=== PATIENT | male | born 1980 | race Caucasian/White ===

== ENCOUNTER 2018-07-25 23:24 | Observation (INO) | payer OTHER ==
[~2018-07-25] VITALS: Ht 175.3 cm; Wt 99.9 kg
--- OUTSIDE RECORDS SUMMARY | 2018-07-25 23:25 | XMS REPORT | Clinical Summary ---
Author Author [facility] Organization [facility] Address Unknown Phone Unavailable Care Team Providers Care Clipper And Turner Name Role Phone Edu Arzola MD PCP Allergies No Known Allergies Medications End Date Status Medication Sig Dispensed Refills Start Date Active amphetamine-dextroampheta 0 mine XR (ADDERALL XR) 25 7 MG 24 hr capsule Active hydroCHLOROthiazide 2 (HYDRODIURIL) 25 MG 7 tablet Active anastrozole (ARIMIDEX) 1 TAKE 1 T PO D 1 mg chemo tablet 7 Active TESTOSTERONE CYPIONATE IM Inject into 0 the shoulder, thigh, or buttocks. Active Problems Problem Noted Date Hypogonadism in male 06/30/2017 Infertility counseling 06/30/2017 Encounters Care Team Description Date Type Specialty Edu Arzola MD Fertility testing (Primary Dx) 09/01/2017 Lab Lab after 07/24/2017 Family History Medical History Relation Name Comments Seizures Brother Prostate cancer Father Diabetes Mother Hyperlipidemia Mother Relation Name Status Comments Brother Father Mother Social History Date Tobacco Use Types Packs/Day Years Used Never Smoker Smokeless Tobacco: Never Used Alcohol Use Drinks/Week oz/Week Comments No Sex Assigned at Date Recorded Not on file Industry Job Start Date Occupation Not on file Not on file Not on file Travel End Travel History Travel Start No recent travel history available. Last Filed Vital Signs Not on file Plan of Treatment Health Maintenance Due Date Last Done Comments MMR VACCINES ( - 1979 Standard series) VARICELLA VACCINES (1991 2 - 2-dose adolescent series) INFLUENZA VACCINE 03/29/2018 HEPATITIS B VACCINES Aged Out No longer eligible based on patient's age to complete this topic IPV VACCINES Aged Out No longer eligible based on patient's age to complete this topic MENINGOCOCCAL VACCINE Aged Out No longer eligible based on patient's age to complete this topic Procedures Comments Procedure Name Priority Date/Time Associated Diagnosis SEMEN ANALYSIS Routine 12/14/2017 Hypogonadism in male 7:33 AM CDT SEMEN ANALYSIS Routine 09/01/2017 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 Volume, semen 2mls 2-5mL mL [facility] OF PATHOLOGY AND GENOMIC MEDICINE Color, semen Robles-White Robles-White mL [facility]MENT OF PATHOLOGY AND GENOMIC MEDICINE Appearance, semen Opaque [facility] DEPARTMENT OF PATHOLOGY AND GENOMIC MEDICINE Count, semen No sperm seen >20mil/mL mil/mL [facility] DE[facility]MENT OF PATHOLOGY AND GENOMIC MEDICINE Morphology, semen FootnoteComment: No sperm seen >50% % NRM [facility] DEPARTMENT OF PATHOLOGY AND GENOMIC MEDICINE pH, semen 8.0 7.2 - 8.0 [facility]MENT OF PATHOLOGY AND GENOMIC MEDICINE Viscosity, semen Normal [facility]MENT OF Comment: PATHOLOGY AND Normal--------Drips/pours GENOMIC MEDICINE easily Moderate------Thick, does not drop/pour easily Marked--------Unable to pipette or work with Liquefaction, semen Upon Receipt <=60 [facility] DEPARTMENT OF PATHOLOGY AND GENOMIC MEDICINE Immediate motility, semen No sperm seen >50% [facility] DEPARTMENT OF Comment: PATHOLOGY AND Decreased Motility (Less than GENOMIC MEDICINE 30%) may be due to either Non-Viable or Non-Motile Sperm Motility grading, semen FootnoteComment: No sperm seen [facility] DEPARTMENT OF yenny Silvestre . PATHOLOGY AND GENOMIC MEDICINE Motility 4 hr, semen Not Performed [facility] DEPARTMENT OF PATHOLOGY AND GENOMIC MEDICINE Motility 24 hr, semen Not Performed [facility] DEPARTMENT OF PATHOLOGY AND GENOMIC MEDICINE RBC, semen 0-2 None seen/HPF % [facility] DEPARTMENT OF PATHOLOGY AND GENOMIC MEDICINE WBC, semen 1-5 0-2/HPF % [facility] DEPARTMENT OF PATHOLOGY AND GENOMIC MEDICINE Collection method, semen Masterbation [facility] DEPARTMENT OF PATHOLOGY AND GENOMIC MEDICINE Abstinence days, semen 4 [facility] DEPARTMENT OF PATHOLOGY AND GENOMIC MEDICINE Container, semen Sterile [facility]MENT OF PATHOLOGY AND GENOMIC MEDICINE Collect problems, semen None [facility]MENT OF PATHOLOGY AND GENOMIC MEDICINE Collect time, semen 7:30 [facility]MENT OF PATHOLOGY AND GENOMIC MEDICINE Lab receipt time, semen 7:55 [facility]MENT OF PATHOLOGY AND GENOMIC MEDICINE Analysis time, semen 8:9 [facility] DEPARTMENT OF PATHOLOGY AND GENOMIC MEDICINE Specimen Fluid Performing Organization Address City/State/Zipcode Phone Number [facility] DEPARTMENT OF [address] [place] [address] PATHOLOGY AND GENOMIC MEDICINE after 07/24/2017 Insurance Payer Benefit Subscriber ID Type Phone Address Plan / Group BCBS BCBS xxxxxxxxxxxx PPO CHOICE PPO/LYNDA WALLACE PPO Advance Directives Patient has advance care planning documents on file. For more information, darshan alvarez contact: Mele Xavier [address] [place] [address]
[2018-07-25] MEDS ORDERED: ONDANSETRON HCL INJ 2 MG/ML VIAL IV STA (23:39)
[2018-07-25] MEDS ORDERED: NITROGLYCERIN 2% OINT 1 GM PKT TOP ONE (23:45)
[2018-07-25] MEDS ORDERED: ASPIRIN 81 MG CHEW TAB PO ONE (23:45)
[2018-07-26 00:04] LABS: BASOPHILS # (AUTO) 0.1 (0.0-0.1); BASOPHILS % 0.9 % (0.0-1.0); EOSINOPHILS # (AUTO) 0.3 (0.0-0.4); EOSINOPHILS % 2.8 % (0.0-6.0); HEMATOCRIT 50.4 % (38.2-49.6); HEMOGLOBIN 16.9 g/dL (14.0-18.0); LYMPHOCYTES # (AUTO) 2.2 (1.0-3.2); LYMPHOCYTES % 18.8 % (18.0-39.1); MEAN CORPUSCULAR HEMOGLOBIN 30.2 pg (28-32); MEAN CORPUSCULAR HGB CONC 33.5 g/dL (31-35); MEAN CORPUSCULAR VOLUME 90.2 fL (81-99); MONOCYTES % 8.5 % (4.4-11.3); NEUTROPHILS # (AUTO) 7.9 (2.1-6.9); NEUTROPHILS % 68.3 % (38.7-80.0); PLATELET COUNT 345 x10e3/uL (140-360); RED BLOOD COUNT 5.59 x10e6/uL (4.3-5.7); RED CELL DISTRIBUTION WIDTH 13.2 % (11.7-14.4)
[2018-07-26] MEDS ORDERED: PANTOPRAZOLE 40 MG 10ML VIAL IV STA (00:17)
[2018-07-26 00:21] LABS: ALBUMIN 3.9 g/dL (3.5-5.0); ANION GAP 15.4 mmol/L (8-16); CALCIUM 9.8 mg/dL (8.4-10.2); CREATININE, SERUM 1.51 mg/dL (0.72-1.25); POTASSIUM 3.4 mmol/L (3.5-5.1)
[2018-07-26 00:28] LABS: CREATINE KINASE MB 3.8 ng/mL (0-5.0)
--- NOTE | 2018-07-26 00:57 | Diagnostic Imaging Report ---
EXAM: CHEST SINGLE (PORTABLE), AP 1 view INDICATION: Chest pain, indigestion COMPARISON: None FINDINGS: LINES/TUBES: None LUNGS: No consolidations or edema. PLEURA: No effusions or pneumothorax. HEART AND MEDIASTINUM: Normal size and contour. BONES AND SOFT TISSUES: No acute findings. IMPRESSION: No acute thoracic abnormality. Signed by: Dr. Malou Parekh M.D. on 07/26/2018 12:53 AM
[2018-07-26] MEDS ORDERED: POTASSIUM CHLORIDE 20 MEQ TAB CR PO STA (01:27)
[2018-07-26] MEDS ORDERED: SODIUM CHLORIDE 0.9% 1000ML 1,000 ML IV ONE (01:30)
[2018-07-26] MEDS ORDERED: POTASSIUM CHLORIDE 20 MEQ TAB CR PO ONE (01:34)
[2018-07-26] MEDS ORDERED: ASPIRIN 81 MG CHEW TAB PO ONE (01:45)
[2018-07-26] MEDS ORDERED: ONDANSETRON HCL INJ 2 MG/ML VIAL IV PRN (01:45)
[2018-07-26] MEDS ORDERED: ONDANSETRON HCL INJ 2 MG/ML VIAL IV STA (01:48)
--- OUTSIDE RECORDS SUMMARY | 2018-07-26 01:58 | XMS REPORT | Clinical Summary ---
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 Volume, semen 2mls 2-5mL mL [facility]OMIC MEDICINE Color, semen Robles-White Robles-White mL [facility]OLOGY AND GENOMIC MEDICINE Appearance, semen Opaque [facility]OLOGY AND GENOMIC MEDICINE Count, semen No sperm seen >20mil/mL mil/mL [facility]OLOGY AND GENOMIC MEDICINE Morphology, semen FootnoteComment: No sperm seen >50% % NRM [facility]OLOGY AND GENOMIC MEDICINE pH, semen 8.0 7.2 - 8.0 [facility]OLOGY AND GENOMIC MEDICINE Viscosity, semen Normal [facility] Comment: PATHOLOGY AND Normal--------Drips/pours GENOMIC MEDICINE easily Moderate------Thick, does not drop/pour easily Marked--------Unable to pipette or work with Liquefaction, semen Upon Receipt <=60 [facility]OLOGY AND GENOMIC MEDICINE Immediate motility, semen No sperm seen >50% [facility] Comment: PATHOLOGY AND Decreased Motility (Less than GENOMIC MEDICINE 30%) may be due to either Non-Viable or Non-Motile Sperm Motility grading, semen FootnoteComment: No sperm seen [facility] yenny Silvestre . PATHOLOGY AND GENOMIC MEDICINE Motility 4 hr, semen Not Performed [facility]OLOGY AND GENOMIC MEDICINE Motility 24 hr, semen Not Performed [facility]OLOGY AND GENOMIC MEDICINE RBC, semen 0-2 None seen/HPF % [facility]OLOGY AND GENOMIC MEDICINE WBC, semen 1-5 0-2/HPF % [facility]OLOGY AND GENOMIC MEDICINE Collection method, semen Masterbation [facility]OLOGY AND GENOMIC MEDICINE Abstinence days, semen 4 [facility]OLOGY AND GENOMIC MEDICINE Container, semen Sterile [facility] PATHOLOGY AND GENOMIC MEDICINE Collect problems, semen None [facility]OLOGY AND GENOMIC MEDICINE Collect time, semen 7:30 [facility]OLOGY AND GENOMIC MEDICINE Lab receipt time, semen 7:55 [facility]OLOGY AND GENOMIC MEDICINE Analysis time, semen 8:9 [facility]Y AND GENOMIC MEDICINE Specimen Fluid Performing Organization Address City/State/Zipcode Phone Number [facility] [address] [place] [address] PATHOLOGY AND GENOMIC MEDICINE after 07/25/2017 Insurance Payer Benefit Subscriber ID Type Phone Address Plan / Group BCBS BCBS xxxxxxxxxxxx PPO CHOICE PPO/LYNDA WALLACE PPO Advance Directives Patient has advance care planning documents on file. For more information, darshan alvarez contact: Mele Xavier [address] [place] [address]
--- OUTSIDE RECORDS SUMMARY | 2018-07-26 01:58 | XMS REPORT ---
Author [facility] Address Unknown Phone Unavailable Care Team Providers Care Chaser Apprentice Name Role Phone Mayte RIZZO Unavailable Unavailable Problems This patient has no known problems. Allergies, Adverse Reactions, Alerts This patient has no known allergies or adverse reactions. Medications This patient has no known medications. Results Test Description Test Time Test Comments Text Results Atomic Results Result Comments CHEST SINGLE (PORTABLE) 2018-07-26 00:53:00 [place] [address] Patient Name: LAZARA GEORGE MR #: [id number] : 1980 Age/Sex: 37/M Req #: [id number] Adm Physician: Ordered by: FELICIANO RIZZO MD Report #: [id number] Location: ER Room/Bed: Procedure: [id number] DX/CHEST SINGLE (PORTABLE) Exam Date: 07/25/18 Exam Time: 2359 REPORT STATUS: Signed EXAM: CHEST SINGLE (PORTABLE), AP 1 view INDICATION: Chest pain, indigestion COMPARISON: None FINDINGS: LINES/TUBES: None LUNGS: No consolidations or edema. PLEURA: No effusions or pneumothorax. HEART AND MEDIASTINUM: Normal size and contour. BONES AND SOFT TISSUES: No acute findings. IMPRESSION: No acute thoracic abnormality. Signed by: Dr. Curtis Riggins M.D. on 07/26/2018 12:53 AM D ictated By: CURTIS RIGGINS MD Transcribed By: MIRA on 07/26/1852 COPY TO: FELICIANO RIZZO MD
[2018-07-26] MEDS: SODIUM CHLORIDE 0.9% 1000ML 1,000 ML IV SCH ×2 (02:23→08:50)
[2018-07-26] MEDS ORDERED: ANASTROZOLE1 MG PO (02:42)
[2018-07-26] MEDS ORDERED: PROPRANOLOL HCL40 MG PO (02:42)
[2018-07-26] MEDS ORDERED: ADDERALL 20 MG20 MG PO (02:42)
[2018-07-26] MEDS ORDERED: ESIDRIX25 MG PO (02:42)
[2018-07-26] MEDS ORDERED: TESTOSTERO200 MG/1 M IM (02:42)
[2018-07-26] MEDS ORDERED: ACETAMINOPHEN 325 MG TAB PO PRN (02:45)
[2018-07-26 03:09] VITALS: BP 113/70
[2018-07-26 03:27] VITALS: BP 113/70
[2018-07-26] MEDS ORDERED: NITROGLYCERIN 2% OINT 1 GM PKT TOP SCH (06:00)
[2018-07-26 06:08] LABS: CREATINE KINASE MB 2.7 ng/mL (0-5.0)
--- NOTE | 2018-07-26 07:37 | History and Physical ---
REASON FOR ADMISSION: This 37-year-old male comes in with chest pain. HISTORY OF PRESENT ILLNESS: Mr. Dorado, with a history of continuous reflux esophagitis, was in his usual state of health until yesterday. The patient played some softball and went to the gym yesterday and started to have some intermittent chest pain, more epigastric in nature and radiating to the back, associated with nausea. The pain continued. The patient said it was severe, and the pain was about 7/10 to 8/10. With the ongoing chest pain and relentless pain, the patient came to the emergency room and was admitted for chest pain with abnormal EKG and also symptoms of gastritis. PAST MEDICAL HISTORY: Hypertension, history of low testosterone, history of ADHD. MEDICATIONS 1. Adderall 20 mg daily. 2. Testosterone cypionate 1 mg twice a week. 3. Propranolol 40 mg twice a day. 4. Hydrochlorothiazide 25 mg. 5. Anastrozole 1 mg for estrogen ramona. SURGICAL HISTORY: Noncontributory. ALLERGIES: NO KNOWN ALLERGIES. SOCIAL HISTORY: No EtOH. No IV drug use. Positive for dipping, but the patient apparently did stop dipping about 2 days ago because of the severe esophagitis. REVIEW OF SYSTEMS: Positive for chest pain. No shortness of breath. No nausea, vomiting, diarrhea. No constipation. No rectal bleeding. No hematochezia. No hematemesis. PHYSICAL EXAMINATION GENERAL: Alert and oriented times 3. VITAL SIGNS: Temperature 98.4, respirations 21, blood pressure 133/70, pulse ox 95% on room air. The blood pressure right now is 113/70. CV: S1 and S2 normal, regular rate and rhythm. ABDOMEN: Tender in the epigastrium. EXTREMITIES: No clubbing. No cyanosis. No edema. LABS: The patient's initial laboratory values: Sodium 136, potassium 3.4, creatinine 1.51, EGFR 52, creatine kinase 1133. Hematology: White count 11.53, hemoglobin 16.9, hematocrit 40.4, neutrophils 7.9. IMAGING STUDIES: Chest x-ray was essentially no acute thoracic abnormality. ASSESSMENT 1. Chest pain. 2. Electrocardiogram changes with T-wave inversions in II, III and aVF. 3. Epigastric pain, possibly gastritis in nature. 4. Elevated creatine kinase secondary to probably dehydration and also overuse. Will continue monitoring. It has been trending down. 5. Acute kidney injury. Continue with fluids. PLAN 1. Consult cardiology, Dr. Sharma, because of family history and also T-wave inversions. 2. Will consult Dr. Myke Jordan secondary to gastritis. He will need an EGD as an outpatient or in here. 3. Further recommendations depending on clinical course. Will continue to monitor the patient. Also, we will repeat his CK and also his creatinine function tomorrow. Job#: [id number]
[2018-07-26 07:52] VITALS: BP 122/64
[2018-07-26] MEDS: PANTOPRAZOLE SOD 40 MG TABEC PO SCH (08:50)
[2018-07-26] MEDS: FAMOTIDINE 20 MG/2 ML VIAL IV SCH ×2 (08:50→22:40)
[2018-07-26] MEDS ORDERED: PROPRANOLOL HCL 40 MG TAB PO SCH (09:00)
[2018-07-26 11:34] VITALS: BP 116/62
--- NOTE | 2018-07-26 12:34 | Cardiology Report ---
DATE OF STUDY: July 26, 2018 EXERCISE TREADMILL STRESS TEST INDICATION FOR STUDY: Chest pain. TECHNICAL DETAILS: After risks, benefits, pros and cons of today's exercise treadmill stress test were explained to the patient, the patient agreed to proceed. Patient was brought to the stress lab were 12-lead EKG monitoring and blood pressure monitoring were obtained. The patient exercised on a Reji protocol for a total duration of 7:00 minutes, going from a resting heart rate of 81 beats per minute to a maximum of 160 beats per minute above his target heart rate of 154 beats per minute. Blood pressure increased from a baseline of 103/66 to 159/66, which is an appropriate blood pressure response. Protocol was terminated due to achievement of target heart rate. At peak exercise, there were no ischemic EKG changes and the patient denied any chest pain or shortness of breath. Protocol was terminated into 1 minute of stage 3 of the Reji protocol. CONCLUSIONS 1. Negative exercise treadmill stress test. 2. Underlying EKG reveals sinus rhythm with nonspecific T-wave inversions in the lateral precordial leads. At peak exercise, there were no ST-segment changes, and there were no subjective ischemic symptoms. 3. Overall stress test represents a low-risk stress test. Job#: [id number] PAUL
[2018-07-26 14:11] LABS: CREATINE KINASE MB 2.1 ng/mL (0-5.0)
--- NOTE | 2018-07-26 14:56 | Consultation ---
DATE OF CONSULTATION: July 26, 2018 CARDIOLOGY CONSULTATION REASON FOR CONSULTATION: Chest pain. HISTORY OF PRESENT ILLNESS: Mr. Dorado is a 37-year-old gentleman with past medical history of GERD and hypertension as well as chronic steroid use with testosterone. The patient at baseline is very active. He works as a marketing professional for a company. For the past 5 years, he has been pretty tenriism in terms of having a good exercise structured program including free weights, cardio, etc. He has been experiencing a 1-month history of progressively worsening GERD-type sensation where he has epigastric burning radiating up his chest wall, lasting 15 to 20 minutes at a time, exacerbated by certain meals. The symptoms progressively worsened over the course of this 1 month, and now he is having almost daily episodes. The patient yesterday worked out in his gym and had no limitations. However, he did have some chest discomfort. He went home. Around 10 p.m., he had a severe episode of this GERD-like sensation with pain radiating up his chest wall region associated with shortness of breath and then pressure-like sensation. It lasted 4 hours. He ended up coming into the emergency room where he was admitted for this chest pain episode. His cardiac biomarkers thus far times 2 appear to be negative. His EKG revealed nonspecific T-wave inversions in the lateral precordial leads. In the emergency room, he had an episode of vomiting, which was reported to be blood-tinged, which is new for him. His reports that his ability to eat has changed over the span of the last month and is concerned about his overall state of health. We had a long discussion with the patient in terms of alternative diagnoses and differential diagnosis, and the patient wanted just conservative management with noninvasive evaluation with a treadmill stress test. He is for a treadmill stress test this a.m. GI has also been consulted, and he will likely undergo further evaluation with them. PAST MEDICAL HISTORY 1. Hypertension, essential. 2. Low testosterone. 3. History of ADHD. PAST SURGICAL HISTORY: Denies. FAMILY HISTORY: Mother and father are both alive and well. There is no family history of coronary disease with them. SOCIAL HISTORY: He is a lifelong nonsmoker. Denies any alcohol or illicit drug use. He does dip tobacco at times, but he stopped dipping in recent history. ALLERGIES: NO KNOWN DRUG ALLERGIES. HOME MEDICATIONS: Include: 1. Adderall 20 mg daily. 2. Testosterone 1 mg twice a week. 3. Propranolol 40 mg b.i.d. 4. Hydrochlorothiazide 25 mg daily. 5. Anastrozole 1 mg daily. REVIEW OF SYSTEMS GENERAL: Denies any fever, chills or any weight changes. HEENT: No headache, visual complaints, sore throat, stuffy nose. RESPIRATORY: Denies any pleuritic chest pain. Had shortness of breath with the last chest pain episode. CARDIOVASCULAR: Chest pain as per HPI. Denies any orthopnea, PND, palpitations, syncope or near syncope. GI: Positive for severe GERD worsening over the past month. Denies any bright red blood per rectum or melena. Has had frequent loose stools in recent history, which is unusual for him. : Denies any dysuria, pyuria, or changes in urinary frequency. MUSCULOSKELETAL: Denies any back pain, knee pain or severe DJD. ENDOCRINE: Denies any heat or cold intolerance. NEUROLOGIC: Denies any focal weakness, numbness, tingling, seizures, headache, TIA or stroke. OTHER: The remainder of the review of systems is negative unless otherwise mentioned. PHYSICAL EXAMINATION VITALS: Height is 6 feet 1 inch, weight 220 pounds. Blood pressure is 122/64, pulse 76, respiratory rate 18, temperature 97.9. O2 sat 95% on room air. GENERAL: This is a well-nourished, well-developed gentleman, who appears fit. He is currently in no apparent distress. HEENT: Pupils are equal, round and reactive to light. The extraocular movements are intact. Oropharynx is clear. NECK: No elevation of jugular venous pulsation. No carotid bruit. CARDIOVASCULAR: Regular rate and rhythm. Normal S1 and S2. Soft, 2/6, systolic murmur at the left lower sternal border. LUNGS: Relatively clear to auscultation bilaterally. There is chest wall tenderness to palpation. ABDOMEN: There is mid-epigastric discomfort to palpation as well as left upper quadrant and right upper quadrant pain with palpation but no tricia guarding or rebound. Hypoactive bowel sounds. BACK: No costovertebral angle tenderness. EXTREMITIES: Warm with 2+ bilateral radial pulses, 2+ bilateral femoral pulses, and 2+ pedal pulses. NEUROLOGIC: Cranial nerves II through XII are intact. Strength is 5/5 and grossly nonfocal. PSYCH: Normal fluent speech. Appropriate affect. No anxiety or delusions. LABS: White count 11.5, hemoglobin 16.9, hematocrit 50.4, platelets 345. Sodium 136, potassium 3.4, chloride 95, bicarb 29, BUN 16, creatinine 1.51, glucose 78. CK went from 1133 to 824, and MB went from 3.8 to 2.7. Troponin went from 0.004 to 0.013. Amylase 87, lipase 11. AST 27, ALT 27, alk phos 73, total bilirubin 0.6. Chest x-ray is unremarkable. EKG reveals sinus rhythm. Nonspecific T-wave inversions in the lateral precordial leads that do not appear ischemic in origin. DIAGNOSES 1. Chest pain with mixed typical and atypical features, more likely gastrointestinal. 2. New onset diarrhea for about a month. 3. Hypertension, essential. 4. Hypokalemia. 5. Prerenal azotemia. 6. Mild rhabdomyolysis, likely secondary to working out history. PLAN/RECOMMENDATIONS 1. From a cardiovascular standpoint, we will proceed with exercise treadmill stress test for ischemic risk stratification as per strong patient wishes. 2. Will follow up on echocardiogram results. 3. Agree with GI consultation and evaluation. 4. Will need to monitor H and H due to his subjective "hematemesis." 5. IV fluids for his rhabdo. 6. Telemetry monitoring. We will continue to follow this patient. Thank you for this referral. Job#: [id number]
[2018-07-26 16:00] VITALS: BP 105/52
[2018-07-26 20:00] VITALS: BP 107/59
[2018-07-26 21:13] LABS: CREATINE KINASE MB 1.7 ng/mL (0-5.0)
[2018-07-27] VITALS: BP 101/53
[2018-07-27 04:00] VITALS: BP 111/58
[2018-07-27 05:49] LABS: BASOPHILS # (AUTO) 0.1 (0.0-0.1); EOSINOPHILS # (AUTO) 0.2 (0.0-0.4); EOSINOPHILS % 3.7 % (0.0-6.0); HEMATOCRIT 43.3 % (38.2-49.6); HEMOGLOBIN 14.3 g/dL (14.0-18.0); LYMPHOCYTES # (AUTO) 1.6 (1.0-3.2); LYMPHOCYTES % 27.6 % (18.0-39.1); MEAN CORPUSCULAR HEMOGLOBIN 29.9 pg (28-32); MEAN CORPUSCULAR VOLUME 90.4 fL (81-99); MONOCYTES # (AUTO) 0.5 (0.2-0.8); MONOCYTES % 8.3 % (4.4-11.3); NEUTROPHILS # (AUTO) 3.4 (2.1-6.9); NEUTROPHILS % 58.7 % (38.7-80.0); PLATELET COUNT 254 x10e3/uL (140-360); RED BLOOD COUNT 4.79 x10e6/uL (4.3-5.7); RED CELL DISTRIBUTION WIDTH 13.5 % (11.7-14.4)
[2018-07-27 06:07] LABS: INR 0.97; PROTHROMBIN TIME 13.8 seconds (11.9-14.5)
[2018-07-27 06:21] LABS: ALANINE AMINOTRANSFERASE 19 IU/L (0-55); ALBUMIN/GLOBULIN RATIO 0.9 (0.8-2.0); ALKALINE PHOSPHATASE 58 IU/L (40-150); ANION GAP 11.6 mmol/L (8-16); BLOOD UREA NITROGEN 8 mg/dL (7-26); BUN/CREATININE RATIO 7 (6-25); CALCIUM 8.2 mg/dL (8.4-10.2); CARBON DIOXIDE 24 mmol/L (22-29); CHLORIDE 107 mmol/L (98-107); CHOL/HDL RATIO 9.5 (3.9-4.7); CHOLESTEROL 209 MD/DL (0-199); CREATININE, SERUM 1.13 mg/dL (0.72-1.25); EST GLOMERULAR FILTRATION RATE > 60 ML/MIN (60-); GLUCOSE 85 mg/dL (74-118); HDL CHOLESTEROL 22 MG/DL (40-60); LDL CHOLESTEROL 161 MG/DL (60-130); POTASSIUM 3.6 mmol/L (3.5-5.1); SODIUM 139 mmol/L (136-145); TRIGLYCERIDES 131 MG/DL (0-149)
--- NOTE | 2018-07-27 07:23 | Progress Note ---
DATE: July 27, 2018 This 37-year-old male comes in with chest pain, noncardiac. He had an exercise treadmill test, and the patient was negative for ischemia. The patient also has rhabdomyolysis and acute kidney injury disease, which is better. We had to stop his fluids yesterday because he became edematous. The patient is currently sleepy but arousable. I did discuss findings with his . OBJECTIVE VITALS: Temperature is 97.5, pulse 91, blood pressure 101/53, SpO2 97%. GENERAL: Alert and oriented times 3. Sleepy, arousable. LUNGS: Clear to auscultation bilaterally. HEENT: Normocephalic and atraumatic. NECK: No JVD present. CARDIOVASCULAR: S1 and S2 normal. ABDOMEN: Tenderness is present in the epigastrium continuously and with continuous pain. EXTREMITIES: No clubbing. No cyanosis. No edema. NEUROLOGIC: Nonfocal. LABS: The patient's sodium was 136 yesterday. Potassium was 3.4, which was replaced. We still have pending labs. The patient normalized at 3.6. Labs today: Creatine kinase has trended down to 548. Triglycerides are 131, total cholesterol 209, LDL 161, HDL 22. Coags normal. ASSESSMENT 1. Chest pain. Ruled out acute coronary syndrome. 2. Electrocardiogram changes with inferior lead changes, ischemia ruled out. 3. Hypertension. 4. Hyperlipidemia. 5. Hyperandrogenism with testosterone replacement history. 6. Rhabdomyolysis. Creatine kinase correcting. 7. Acute kidney injury, corrected. The plan today would be to do an EGD, and the patient can be discharged home. From a medicine standpoint, the patient can follow up with his primary care physician and follow up with diamond sander and also Dr. Myke Jordan on an outpatient basis. For further information, look in the chart. Job#: [id number]
[2018-07-27 07:53] VITALS: BP 101/50
[2018-07-27] MEDS: FAMOTIDINE 20 MG/2 ML VIAL IV SCH (09:38)
[2018-07-27] MEDS: PANTOPRAZOLE SOD 40 MG TABEC PO SCH (09:38)
--- NOTE | 2018-07-27 10:41 | Operative Report ---
DATE OF PROCEDURE: July 27, 2018 REFERRING PHYSICIAN: Dr. Jordan Garcia PROCEDURE PERFORMED: Esophagogastroduodenoscopy with biopsies. INDICATIONS FOR EGD: Heartburn, indigestion, noncardiac chest pain. MEDICATION: Patient was done under MAC. Please see anesthesiologist's note. PROCEDURE: With the patient in the left lateral decubitus position, the flexible fiberoptic Olympus gastroscope was introduced into the esophagus under direct visualization without any difficulty. Long, linear erosions were noted in the mid and distal esophagus. The GE junction was somewhat raised, nodular and friable, and biopsies were obtained. The scope was then advanced with ease into the stomach, traversing a small sliding hiatal hernia. Mucosa overlying the antrum and the body revealed some patchy erythema and low-grade to moderate edema, and biopsies were obtained and sent to stain for H. pylori. The pylorus was intubated with ease, and the scope was advanced all the way to the 2nd portion of the duodenum. Biopsies were obtained from the proximal 2nd portion and the duodenal bulb to rule out sprue. The scope was then withdrawn back into the stomach and retroflexed. Mucosa overlying the fundus and the cardia appeared to be within normal limits. The previously described hiatal hernia was also noted in the retroflexed position. The scope was then straightened out. It was subsequently withdrawn. Patient tolerated the procedure well. IMPRESSION 1. Erosive esophagitis. 2. Gastroesophageal junction nodular and friable, biopsied. 3. Small sliding hiatal hernia. 4. Gastritis, biopsied. Biopsy sent to stain for H. pylori. 5. Rule out sprue. PLAN: Follow up histology. Initiate Protonix 40 mg 1 p.o. q.a.m. a.c. Patient might benefit from a followup EGD in 8 weeks to re-evaluate the esophagus to rule out Julien's. Job#: [id number] cc:JORDAN GARCIA MD
[2018-07-27] MEDS ORDERED: PANTOPRAZOLE SO40 MG PO ×2 (10:45→10:47)
[2018-07-27 11:30] VITALS: BP 116/63
[2018-07-27] MEDS ORDERED: MIDAZOLAM HCL 2 MG/2 ML VIAL ONE (12:22)
[2018-07-27] MEDS ORDERED: FENTANYL CITRATE/PF 100MCG/2 ML INJ ONE (12:22)
[2018-07-27] MEDS ORDERED: PROPOFOL IV EMULSION 10 MG/ML 50 ML VIAL ONE (14:46)
== END 2018-07-27 11:12 | disposition home or self-care (01) ==
LOC: ER 23:24 → ERHOLD 07-26 01:55 → IMCU 07-26 02:54
PROVIDERS: ADMIT Family Medicine; ATTEND Family Medicine
DX: K22.10 Ulcer of esophagus without bleeding (principal); R07.89 Other chest pain; R94.31 Abnormal electrocardiogram [ECG] [EKG]; M62.82 Rhabdomyolysis; F90.9 Attention-deficit hyperactivity disorder, unspecified type; Z82.49 Family history of ischemic heart disease and other diseases of the circulatory system; Z79.52 Long term (current) use of systemic steroids; R19.7 Diarrhea, unspecified; I10 Essential (primary) hypertension; E87.6 Hypokalemia; R79.89 Other specified abnormal findings of blood chemistry; K21.0 Gastro-esophageal reflux disease with esophagitis; E86.0 Dehydration; K44.9 Diaphragmatic hernia without obstruction or gangrene; G47.33 Obstructive sleep apnea (adult) (pediatric); E78.5 Hyperlipidemia, unspecified; N17.9 Acute kidney failure, unspecified; Z79.890 Hormone replacement therapy; K29.70 Gastritis, unspecified, without bleeding
CPT/HCPCS: 36415 ×2; 43239; 71045; 80053 ×2; 80061; 82150; 82550 ×3; 82553 ×2; 83690; 84443; 84484 ×2; 85025 ×2; 85610; 88305; 88312; 93005; 93017; 93306; 96374; 99284; G0378 ×2; J2250; J2405; J7030; S0164 ×2

== ENCOUNTER → 2018-08-25 | Outpatient (CLI) | payer OTHER ==
[~2018-08-25] MED LIST: ADDERALL 20 MG20 MG PO; ANASTROZOLE1 MG PO; ESIDRIX25 MG PO; IOPAMIDOL 370 MG/ML 200 ML INFUS..BTL INJ ONE; PANTOPRAZOLE SO40 MG PO; PROPRANOLOL HCL40 MG PO; SODIUM CHLORIDE 0.9% 50ML 50 ML ONE; TESTOSTERO200 MG/1 M IM
[2018-08-25 10:31] LABS: CREATININE, SERUM 1.32 mg/dL (0.72-1.25)
--- NOTE | 2018-08-25 11:35 | Diagnostic Imaging Report ---
EXAM: CT Abdomen and Pelvis WITH contrast INDICATION: Abdominal Pain COMPARISON: None. TECHNIQUE: Abdomen and pelvis were scanned utilizing a multidetector helical scanner from the lung base to the pubic symphysis after administration of IV contrast. Coronal and sagittal reformations were obtained. Routine protocol was performed. Scan was performed when during portal venous phase. IV CONTRAST: 100 mL of Isovue 370 ORAL CONTRAST: Water COMPLICATIONS: None RADIATION DOSE: Total DLP: 539.5 mGy*cm CTDIvol has been reviewed. It is below the limits set by the Radiation Protocol Committee (RPC). FINDINGS: LINES and TUBES: None. LOWER THORAX: Unremarkable HEPATOBILIARY: No evidence of focal lesion. No biliary ductal dilation. GALLBLADDER: No radio-opaque stones or sludge. No wall thickening. SPLEEN: No splenomegaly. PANCREAS: No focal masses or ductal dilatation. ADRENALS: No adrenal nodules KIDNEYS/URETERS: Kidneys enhance symmetrically. No evidence of hydronephrosis, solid mass, or stone. GI TRACT: No evidence of wall thickening or distension. Appendix is normal. PELVIC ORGANS/BLADDER: Unremarkable. LYMPH NODES: No lymphadenopathy. VESSELS: Unremarkable. PERITONEUM / RETROPERITONEUM: No free air or fluid. BONES AND SOFT TISSUES: Mild degenerative disc changes at L5-S1. CONCLUSION: Unremarkable CT of the abdomen and pelvis. Signed by: Dr. Rick Smith MD on 08/25/2018 11:32 AM
== END ==
LOC: CT 09:25
PROVIDERS: ATTEND Internal Medicine Gastroenterology
DX: R10.9 Unspecified abdominal pain (principal)
CPT/HCPCS: 36415; 74177; 82565; 84520; Q9967